=== PATIENT | male | born 1990 | race African-American/Black ===

== ENCOUNTER 2018-04-26 19:06 | Emergency (ER) | payer MEDICAID ==
[~2018-04-26] VITALS: Ht 160 cm; Wt 145.0 kg
[2018-04-26] MEDS ORDERED: IBUPROFEN 800MG TABLET PO ONE (21:15)
[2018-04-26 21:23] VITALS: BP 149/85
== END 2018-04-26 22:34 | disposition home or self-care (01) ==
LOC: ER 19:06
DX: S40.011A Contusion of right shoulder, initial encounter (principal); S70.01XA Contusion of right hip, initial encounter; F17.200 Nicotine dependence, unspecified, uncomplicated; F12.10 Cannabis abuse, uncomplicated; J45.909 Unspecified asthma, uncomplicated; V49.59XA Passenger injured in collision with other motor vehicles in traffic accident, initial encounter; Y93.89 Activity, other specified; Y92.89 Other specified places as the place of occurrence of the external cause; Y99.8 Other external cause status
CPT/HCPCS: 73030; 73502; 99284; A4565